=== PATIENT | female | born 1990 | race Caucasian/White ===

== ENCOUNTER 2016-12-02 14:13 | Emergency (ER) | payer MEDICAID, OTHER ==
[~2016-12-02] VITALS: Ht 162.6 cm; Wt 69.3 kg
[~2016-12-02 14:13] MED LIST: FERR325T35 PO; IBUP200T48 PO; OXYC-302 PO; PREN1TAB60 PO
[2016-12-02 14:15] VITALS: BP 130/81
== END 2016-12-02 15:42 | disposition home or self-care (01) ==
LOC: ED 15:30
DX: S60.031A Contusion of right middle finger without damage to nail, initial encounter (principal); W22.8XXA Striking against or struck by other objects, initial encounter; Y93.89 Activity, other specified; Y92.89 Other specified places as the place of occurrence of the external cause; Y99.8 Other external cause status
CPT/HCPCS: 99284

== ENCOUNTER 2020-03-30 19:33 | Emergency (ER) | payer MEDICAID ==
[~2020-03-30] VITALS: Ht 162.6 cm; Wt 71.7 kg
[~2020-03-30 19:33] MED LIST changes: +FERR-46 PO; -FERR325T35 PO; -IBUP200T48 PO; +IBUP200T49 PO
[2020-03-30] MEDS ORDERED: ACETAMINOPHEN 500 MG TABLET PO ONE (20:30)
[2020-03-30] MEDS ORDERED: ACETAMINOPHEN 500 MG TABLET ONE (20:45)
[2020-03-30] MEDS ORDERED: ONDANSETRON ODT 4 MG ONE (21:23)
[2020-03-30 21:24] VITALS: BP 106/66
[2020-03-30] MEDS ORDERED: ONDANSETRON ODT 4 MG PO ONE (21:30)
== END 2020-03-30 21:59 | disposition home or self-care (01) ==
LOC: ED 21:30
DX: U07.1 COVID-19 (principal); R50.9 Fever, unspecified; R05 Cough; R07.89 Other chest pain; M79.10 Myalgia, unspecified site; R11.2 Nausea with vomiting, unspecified; R51.9 Headache, unspecified; R09.81 Nasal congestion
CPT/HCPCS: 36415; 71045; 87635; 93005; 99285; Q0162